=== PATIENT | male | born 1965 | race Caucasian/White ===

== ENCOUNTER 2023-02-14 12:53 | Emergency (ER) | payer OTHER, SELFPAY ==
[2023-02-14] VITALS (17 sets, daily range): BP systolic 114–150; BP diastolic 61–99; PULSE 66–90; RESP 14–24; O2SAT 94–99; BMI 41.8
[2023-02-14] MEDS: EPINEPHrine 1 MG/ML (12:52)
[2023-02-14] MEDS: methylPREDNISolone 125 MG/2 ML VIAL (12:53)
[2023-02-14] MEDS: diphenhydrAMINE 50 MG/ML VIAL (12:55)
[2023-02-14] MEDS: FAMOTIDINE 20 MG/2 ML VIAL IV (12:57)
--- NOTE | 2023-02-14 12:58 | ED.ALLEREA ---
HPI - Allergic Reaction General Chief complaint: Allergic Reaction Stated complaint: Anaphylaxis Time Seen by Provider: 02/14/23 12:58 Source: patient Mode of arrival: EMS Limitations: no limitations History of Present Illness HPI narrative: The patient had a hamburger for lunch at home. He is had the same sandwich previously at home. He would had she is this time. About 1 hour after eating a hamburger he developed airway tightness, and muffled voice. Nine 1 was called. Lungs are noted to be clear. He is normotensive. There is no rash. Did take 25 Benadryl p.o. prior to arrival. He is never had a reaction to interview the medications he takes. He is never had an adverse reaction to metoprolol. He denies recent illness. No recent URI symptoms. No fever chills. He is on multiple medications, including metoprolol. He is never experienced tongue or throat swelling before. He is not on CHRISTEL inhibitors. Related Data Allergies Allergy/AdvReac Type Severity Reaction Status Date / Time Penicillins AdvReac Verified 02/14/23 13:02 Review of Systems Constitutional Constitutional: Reports as per HPI, Denies body ache(s), Denies chills and Denies fever(s) Eyes Eyes: Denies blurry vision and Denies change in vision ENT Ears, Nose, Mouth, and Throat: Denies vertigo, Denies dizziness, Reports sore throat, Reports throat swelling and Reports tongue swelling Cardiovascular Cardiovascular: Denies chest pain, Denies syncope, Denies rapid heart rate, Denies pedal edema and Denies dyspnea Respiratory Respiratory: Denies cough, Denies dyspnea and Denies wheezing Gastrointestinal Gastrointestinal: Denies abdominal pain Musculoskeletal Musculoskeletal: Denies arthralgias, Denies back pain and Denies arthralgias Integumentary/Breasts Skin/Breast: Denies dry skin and Denies rash Neurologic Neurologic: Denies vertigo, Denies dizziness and Denies syncope Hematologic/Lymphatic On Anticoagulants: No Allergic/Immunologic Allergic/Immunologic: Reports throat swelling, Reports tongue swelling and Denies wheezing Patient History Medical History (Updated 02/14/23 @ 18:36 by Rachid Morton MD) BPH (benign prostatic hyperplasia) Dyspepsia Hypertension Rosacea Social History Smoking Status: Never smoker Exam Initial Vital Signs Initial Vital Signs: Vital Signs Pulse Rate 67 02/14/23 12:51 Respiratory Rate 15 02/14/23 12:51 Pulse Oximetry 99 02/14/23 12:51 Oxygen Delivery Method Room Air 02/14/23 12:51 Const General: cooperative and healthy appearing Orientation: Orientation (normal) Other: Hoarseness HENMT Head: normal to inspection, normocephalic and atraumatic Face and sinus: normal facial exam and sinuses nontender HENMT Other: Edema to the mid and posterior tongue. Edema to the oropharynx. Eyes General: Yes appearance normal, both eyes and all related structures Sclera: sclerae normal Pupils: PERRL EOM: EOM intact bilaterally Neck Neck: normal visual inspection and full ROM Chest Chest: normal inspection of the chest Resp Auscultation: clear to auscultation bilaterally Cardio Palpation: normal PMI Rate: regular rate Rhythm: regular rhythm Heart Sounds: S1 normal, S2 normal and no murmurs GI Inspection: normal to inspection Back/Spine/Pelvis Back: normal to inspection, No back tenderness and No CVA tenderness Skin General: no rashes or lesions noted and No ecchymosis Neuro General: patient alert, patient awake, patient oriented x3 and no focal motor deficits Extrem General: normal to inspection, full ROM, no pedal edema and no calf tenderness Psych Appearance: grossly normal Course Course Course Narrative: The patient was initially thought to have experienced a food allergy. He was given epinephrine IM, IV Benadryl and IV Solu-Medrol. He would the oral edema. There was no evidence of hives. His O2 sats have been normal throughout his ER stay. His vitals have been normal. He did not respond to the medications for allergic reaction. Given the oropharyngeal presentation, I am assuming he had angioedema. He has been observed here for 4+ hours. The swelling is improved. His hoarseness has resolved. His status remained stable. Drinking fluids. He feels the breathing has normalized. He feels like he is okay to go home. Of the medication she takes, metoprolol is the most likely culprit. He was advised to stop this medication, continue other medications, and follow-up with his PCM. Orders Ordered: ED Orders 02/14/23 14:14 EKG-12 Lead Stat Vital Signs Vital signs: Vital Signs - 8 hr 02/14/23 13:02 02/14/23 12:51 02/14/23 13:00 Pulse Rate 72 67 Respiratory Rate 22 15 Blood Pressure 130/81 130/81 Pulse Oximetry 98 99 Oxygen Delivery Method Room Air Room Air 02/14/23 13:00 02/14/23 13:30 02/14/23 13:30 Pulse Rate 66 83 Respiratory Rate 24 14 Blood Pressure 147/80 H Pulse Oximetry 98 98 Oxygen Delivery Method Room Air Room Air 02/14/23 14:00 02/14/23 14:00 02/14/23 14:30 Pulse Rate 79 Respiratory Rate 15 Blood Pressure 128/71 130/69 Pulse Oximetry 96 Oxygen Delivery Method Room Air 02/14/23 14:30 02/14/23 15:00 02/14/23 15:00 Pulse Rate 82 83 Respiratory Rate 18 22 Blood Pressure 130/65 Pulse Oximetry 96 96 Oxygen Delivery Method Room Air 02/14/23 15:30 02/14/23 15:31 02/14/23 15:31 Pulse Rate 89 88 Respiratory Rate 20 Blood Pressure 136/99 H Pulse Oximetry 95 96 Oxygen Delivery Method Room Air 02/14/23 16:00 02/14/23 16:14 02/14/23 16:14 Pulse Rate 90 82 Respiratory Rate 21 Blood Pressure 150/70 H Pulse Oximetry 94 96 Oxygen Delivery Method Room Air 02/14/23 16:30 02/14/23 16:31 02/14/23 16:31 Pulse Rate 84 85 Respiratory Rate 20 22 Blood Pressure 137/75 Pulse Oximetry 95 95 Oxygen Delivery Method Room Air 02/14/23 17:00 02/14/23 17:00 02/14/23 17:30 Pulse Rate 81 Respiratory Rate 17 Blood Pressure 132/75 118/67 Pulse Oximetry 94 Oxygen Delivery Method Room Air 02/14/23 17:30 02/14/23 18:00 02/14/23 18:00 Pulse Rate 71 82 Respiratory Rate 16 21 Blood Pressure 114/61 Pulse Oximetry 94 96 Oxygen Delivery Method Room Air MDM - Allergic Reaction ECG Data Attestation: I personally reviewed and interpreted this ECG as follows: (Normal sinus rhythm rate 82 beats per minute. Old inferior infarct. No ectopy. No acute ST T wave changes.) Discharge Plan Departure Patient Disposition: Home Clinical Impression: Angioedema Instructions: Angioedema Activity Restrictions/Additional Instructions: Stop Metoprolol. Continue your other medications. Contact your PCM to discuss the situation that occurred. Return here as needed. Stand Alone Forms: Patient Portal/API
--- NOTE | 2023-02-14 13:23 | PC.NURSE ---
Patient states he feels sleepy. I explained that with benadryl that is a normal response. Patient is A&O x4 and is resting in bed, making phone calls to his job(s). Patient able to maintain his airway and states he feels his throat continuing to open and be less tight. O2 98% on room air. TM
--- NOTE | 2023-02-14 16:14 | PC.NURSE ---
Patients voice is sounding less hoarse. States he is feeling better and his nasal passages seem more open, allowing him to breath deeply. He was able to ambulate to the bathroom with no difficulties.
== END 2023-02-14 18:54 | disposition home or self-care (01) ==
PROVIDERS: Emergency Provider Emergency Medicine; PCP Registered Nurse
DX: T78.3XXA Angioneurotic edema, initial encounter (principal); R07.9 Chest pain, unspecified
CPT/HCPCS: 93005; 96374; 96375; 99283; 99284; J0171; J1200; J2930

== ENCOUNTER 2023-08-28 12:31 | Emergency (ER) | payer OTHER, SELFPAY ==
[2023-08-28] VITALS (22 sets, daily range): BP systolic 118–169; BP diastolic 60–89; PULSE 61–84; RESP 15–31; TEMP 36.4; O2SAT 94–98; BMI 41.0
[2023-08-28] MEDS: FAMOTIDINE 20 MG/2 ML VIAL IV (12:36)
[2023-08-28] MEDS: DEXAMETHASONE 10 MG/ML VIAL IV (12:36)
[2023-08-28] MEDS: diphenhydrAMINE 50 MG/ML VIAL IV (12:37)
--- NOTE | 2023-08-28 12:42 | ED.ALLEREA ---
HPI - Allergic Reaction General Chief complaint: Allergic Reaction Stated complaint: Allergic Reaction Time Seen by Provider: 08/28/23 12:32 Source: patient Mode of arrival: Ambulatory History of Present Illness HPI narrative: 58-year-old male presents for possible allergic reaction. Patient states that approximately 1 hour prior to arrival his tongue began to swell. He took 50 mg of Benadryl but did not feel his symptoms had improved and so called 911. On arrival patient airway patent, states he still felt as though his tongue was slightly larger than usual. Related Data Previous Rx's Medication Instructions Recorded epinephrine 0.3 mg/0.3 mL 0.3 mg (0.3 mL) IM Q4H PRN 08/28/23 injection, auto-injector (EpiPen) anaphylaxis #2 ea Allergies Allergy/AdvReac Type Severity Reaction Status Date / Time Penicillins AdvReac Verified 08/28/23 12:32 Review of Systems Review of Systems Narrative: Otherwise negative Patient History Medical History Dyspepsia Rosacea BPH (benign prostatic hyperplasia) Hypertension Social History Smoking Status: Never smoker Smoking Status: Never smoker alcohol intake frequency: holidays/special occasions only Alcohol type: beer Substance Use Type: does not use Exam Initial Vital Signs Initial Vital Signs: Vital Signs Temperature 97.6 F 08/28/23 12:32 Pulse Rate 76 08/28/23 12:32 Respiratory Rate 16 08/28/23 12:32 Blood Pressure 139/87 08/28/23 12:32 Pulse Oximetry 95 08/28/23 12:32 Oxygen Delivery Method Room Air 08/28/23 12:32 Const: Awake, alert, no acute distress, nontoxic appearing ENT: Airway patent, no edema, no stridor, no trismus, no pooling of secretions Cardiac: regular rate, regular rhythm RESP: unlabored, clear bilaterally, no wheezing GI: Atraumatic, soft, nontender, nondistended, no rebound, no guarding MSK: Atraumatic, full range of motion, pulses equal Skin: Warm, Dry, intact, no rashes Neuro: AO x3, CN II-XII grossly intact, moves all extremities Psych: affect normal, mood normal, not suicidal, not homicidal Course Orders Ordered: Discontinued Medications Dexamethasone (Dexamethasone 10 Mg/Ml Vial) 10 mg IV NOW ONE Stop: 08/28/23 12:34 Last Admin: 08/28/23 12:36 Dose: 10 mg Documented By: KIAH Diphenhydramine HCl (Diphenhydramine 50 Mg/Ml Vial) 50 mg IV NOW ONE Stop: 08/28/23 12:34 Last Admin: 08/28/23 12:37 Dose: 50 mg Documented By: KIAH Famotidine (Famotidine 20 Mg/2 Ml Vial) 20 mg IV NOW PATRICIA Last Admin: 08/28/23 12:36 Dose: 20 mg Documented By: KIAH Vital Signs Vital signs: Vital Signs - 8 hr 08/28/23 12:32 08/28/23 12:33 08/28/23 12:34 Temperature 97.6 F Pulse Rate 76 Respiratory Rate 16 Blood Pressure 139/87 140/82 Pulse Oximetry 95 95 Oxygen Delivery Method Room Air 08/28/23 12:34 08/28/23 12:36 08/28/23 12:36 Temperature Pulse Rate 82 75 Respiratory Rate Blood Pressure 137/76 Pulse Oximetry 95 96 Oxygen Delivery Method 08/28/23 12:40 08/28/23 12:40 08/28/23 12:50 Temperature Pulse Rate 77 82 Respiratory Rate 15 20 Blood Pressure 141/87 H Pulse Oximetry 94 96 Oxygen Delivery Method 08/28/23 12:50 08/28/23 12:55 08/28/23 12:55 Temperature Pulse Rate 84 Respiratory Rate 22 Blood Pressure 139/82 143/83 H Pulse Oximetry 94 Oxygen Delivery Method 08/28/23 13:00 08/28/23 13:00 08/28/23 13:05 Temperature Pulse Rate 80 Respiratory Rate 15 Blood Pressure 133/81 144/86 H Pulse Oximetry 97 Oxygen Delivery Method 08/28/23 13:05 08/28/23 13:10 08/28/23 13:10 Temperature Pulse Rate 69 75 Respiratory Rate 23 18 Blood Pressure 147/87 H Pulse Oximetry 97 96 Oxygen Delivery Method 08/28/23 13:15 08/28/23 13:15 Temperature Pulse Rate 75 Respiratory Rate 24 Blood Pressure 169/89 H Pulse Oximetry 98 Oxygen Delivery Method MDM - Allergic Reaction Differential Diagnosis Differential diagnosis: Likely anaphylaxis, allergic reaction and angioedema MDM Narrative Medical decision making narrative: Possible allergic reaction, unknown cause of allergic reaction. Patient reports feeling like his tongue is swollen, I do not appreciate any obvious tongue swelling. On arrival patient is airways patent, lungs are clear to auscultation bilaterally, no respiratory distress, no nausea or vomiting, rash, other signs of allergic reaction or anaphylaxis. Patient given Decadron, additional Benadryl, Pepcid. He was observed for a time in the emergency department with no worsening of symptoms. Patient remained resting comfortably in bed and no progression of symptoms. On reassessment patient's airway continues to be patent, lungs clear to auscultation bilaterally, he is conversational without dyspnea or airway/voice changes patient advised to monitor his exposures to see if we can determine the cause of his allergic reaction. He was counseled to follow up with his primary care physician. EpiPen prescription sent to pharmacy to have an hand in case of anaphylaxis in the future. Discharge Plan Departure Patient Disposition: Home Clinical Impression: Allergic reaction Instructions: DI for Anaphylaxis Prescriptions: New epinephrine [EpiPen] 0.3 mg/0.3 mL auto-injector 0.3 mg IM Q4H PRN (Reason: anaphylaxis) Qty: 2 0RF Referrals: Joseph Trent ARNP [Non-Staff] - Stand Alone Forms: Patient Portal/API
== END 2023-08-28 14:11 | disposition home or self-care (01) ==
PROVIDERS: Emergency Provider Emergency Medicine
DX: K14.8 Other diseases of tongue (principal); T78.40XA Allergy, unspecified, initial encounter
CPT/HCPCS: 96374; 96375; 99283; 99284; J1100; J1200